=== PATIENT | male | born 1940 | race Caucasian/White ===

== ENCOUNTER 2021-07-24 12:10 | Outpatient (REF) | payer MEDICARE, SELFPAY | END 2021-07-24 12:11 | disposition home or self-care (01) | LOC: HO.LAB 12:10 | PROVIDERS: PCP Internal Medicine; Visit Provider Otolaryngology | DX: T78.1XXD Other adverse food reactions, not elsewhere classified, subsequent encounter (principal) | CPT/HCPCS: 36415; 82785; 86003 ==